=== PATIENT | female | born 1995 | race Caucasian/White ===

== ENCOUNTER 2022-05-11 03:00 | Emergency (ER) | payer SELFPAY ==
[~2022-05-11] VITALS: Ht 160 cm; Wt 76.9 kg
[2022-05-11 03:07] VITALS: BP 131/83
--- NOTE | 2022-05-11 03:21 | NUR ---
PT TO BED 11.
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
[2022-05-11 04:13] LABS: BASOPHILS % (AUTO) 0.6 % (0.0-2.0); EOSINOPHILS # (AUTO) 0.3 K/uL (0-0.4); EOSINOPHILS % (AUTO) 3.7 % (0.0-4.0); HEMATOCRIT 41.2 % (36-48); HEMOGLOBIN 13.7 g/dL (12.0-16.0); LYMPHOCYTES # (AUTO) 2.3 K/uL (2.5-16.5); LYMPHOCYTES % (AUTO) 27.6 % (20.5-51.1); MEAN CORPUSCULAR HEMOGLOBIN 28 pg (27-31); MEAN CORPUSCULAR HGB CONC 33 g/dL (33-37); MEAN CORPUSCULAR VOLUME 85.2 fL (80-94); MONOCYTES # (AUTO) 0.7 K/uL (0.8-1.0); MONOCYTES % (AUTO) 8.4 % (1.7-9.3); NEUTROPHILS % (AUTO) 59.7 % (42.2-75.2); PLATELET COUNT (AUTO) 286 K/uL (140-450); RED BLOOD CELL COUNT(AUTO) 4.83 MIL/uL (4.20-5.40); RED CELL DISTRIBUTION WIDTH 14.6 % (11.6-13.7); WHITE BLOOD COUNT (AUTO) 8.4 K/uL (4.8-10.8)
[2022-05-11 04:21] LABS: APPEARANCE,URINE CLEAR (CLEAR); BILIRUBIN,URINE NEGATIVE (NEGATIVE); BLOOD, URINE NEGATIVE (NEGATIVE); COLOR,URINE YELLOW (YELLOW); LEUKOCYTE ESTERASE ,URINE 1+ (NEGATIVE); NITRITE, URINE POSITIVE (NEGATIVE); UGLUCOSE NEGATIVE (NEGATIVE)
[2022-05-11 04:27] LABS: ALBUMIN 3.1 g/dL (3.4-5.0); CARBON DIOXIDE 29.1 mmol/L (21-32); CREATININE 0.7 mg/dL (0.6-1.3); POTASSIUM 3.1 mmol/L (3.5-5.1); TOTAL BILIRUBIN 0.2 mg/dL (0.0-1.0)
[2022-05-11 04:35] LABS: CALCIUM OXALATE CRYSTALS,UR 0-10 /HPF (None Seen); RBC,URINE 0-5 /HPF (0-5)
[2022-05-11] MEDS ORDERED: POTASSIUM CHLORIDE 10 MEQ TABER PO ONE (04:40)
[2022-05-11] MEDS ORDERED: NITR100C7 PO (04:44)
--- NOTE | 2022-05-11 05:00 | NUR ---
PT ASLEEP IN BED. NO DISTRESS OBSERVED.
[2022-05-11] MEDS ORDERED: ACETAMINOPHEN EXTRA STRENGTH 500 MG TAB ONE (05:53)
[2022-05-11] MEDS ORDERED: ACETAMINOPHEN EXTRA STRENGTH 500 MG TAB PO ONE (05:55)
[2022-05-11 05:59] VITALS: BP 118/70
--- NOTE | 2022-05-11 06:00 | NUR ---
Patient discharged with v/s stable. Written and verbal after care instructions given and explained. Patient verbalized understanding. Ambulatory with to car. All questions addressed prior to discharge. Advised to follow up with PMD.
--- NOTE | 2022-05-14 15:53 | NUR ---
LATE ENTRY. RECEIVED POSITIVE URINE CULTURE RESULTS. FORM GIVEN TO DR GOETZ, ATTEMPTED TO CALL PT, NO ANSWER. LEFT HER A MESSAGE. IF S/S HAVE RESOLVED, CONTINUE MACROBID. IF URINARY S/S PERSIST, NEED TO START KELFEX 500MG, QID X7 DAYS. FORM PLACED IN BINDER.
== END 2022-05-11 06:00 | disposition home or self-care (01) ==
LOC: MED 03:00
DX: R55 Syncope and collapse (principal); N39.0 Urinary tract infection, site not specified; E87.6 Hypokalemia
CPT/HCPCS: 36415; 80053; 81001; 81025; 85025; 87086; 93005; 99283